=== PATIENT | male | born 1965 | race African-American/Black ===

== ENCOUNTER 2021-07-10 15:40 | Emergency (ER) | payer OTHER ==
[~2021-07-10] VITALS: Ht 175.3 cm; Wt 84.3 kg
[2021-07-10] MEDS ORDERED: CYCLOBENZAPRINE 10 MG TABLET. PO ONE (16:30)
[2021-07-10] MEDS ORDERED: IBUPROFEN 600 MG TABLET. PO ONE (16:30)
[2021-07-10] MEDS ORDERED: HYDROcodone/APAP 5/325MG 1 TAB TABLET PO ONE (16:30)
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
--- NOTE | 2021-07-10 16:52 | RAD ---
Exam: CT head and cervical spine INDICATION: Fall, syncopal episode TECHNIQUE: Sequential axial images through the head and cervical spine were obtained without the admi nistration of IV contrast. Exposure: One or more of the following in the visualized dose reduction techniques were utilized for this examination: 1. Automated exposure control 2. Adjustment of the MA and/or KV according to patient size 3. Use of iterative of reconstructive technique Comparisons: CT head FINDINGS: Head: No focal parenchymal lesion or hemorrhage is identified. There is no midline shift or sulcal effaceme nt. No acute vascular territory infarction is identified. Walls-white distinction is preserved. The ventricular system is within normal limits without compression hydrocephalus. The basal cisterns are well maintained. The visualized portions of the paranasal sinuses and mastoid air cells are well-pneumatized. No acute fractures. Cervical spine: Vertebral body heights and alignment are well-maintained. Fracture to the cervical spine is not identified. Minimal spondylotic change in cervical spine with degenerative disc disease greatest at C4-C5 and C5- C6. Visualized paraspinal soft tissues are unremarkable. IMPRESSION: 1. No acute intracranial abnormality. 2. Negative CT C-spine for acute traumatic injury. Electronically signed by: Nazanin Faye MD (07/10/2021 4:49 PM) [facility]
[2021-07-10] MEDS ORDERED: CYCL-331 PO (18:11)
[2021-07-10] MEDS ORDERED: HYDR-2155 PO (18:11)
[2021-07-10] MEDS ORDERED: IBUP600T16 PO (18:11)
[2021-07-10 18:25] VITALS: BP 134/79
== END 2021-07-10 18:25 | disposition home or self-care (01) ==
LOC: ER 15:40
DX: S16.1XXA Strain of muscle, fascia and tendon at neck level, initial encounter (principal); S29.012A Strain of muscle and tendon of back wall of thorax, initial encounter; R51.9 Headache, unspecified; W18.00XA Striking against unspecified object with subsequent fall, initial encounter; Y93.89 Activity, other specified; Y92.89 Other specified places as the place of occurrence of the external cause; Y99.8 Other external cause status
CPT/HCPCS: 70450; 72125; 99285-25